=== PATIENT | female | born 1950 | race Caucasian/White ===

== ENCOUNTER → 2019-10-15 12:00 | Outpatient (BNVA) | payer MEDICARE, SELFPAY | PROVIDERS: Family Provider Family Medicine; PCP Family Medicine; Visit Provider Internal Medicine | DX: M06.9 Rheumatoid arthritis, unspecified (principal); Z79.899 Other long term (current) drug therapy; Z11.59 Encounter for screening for other viral diseases; Z11.1 Encounter for screening for respiratory tuberculosis; K21.9 Gastro-esophageal reflux disease without esophagitis; F41.9 Anxiety disorder, unspecified; F32.9 Major depressive disorder, single episode, unspecified; Z90.710 Acquired absence of both cervix and uterus; Z98.890 Other specified postprocedural states | CPT/HCPCS: 36415; 80053; 85025; 85651; 86140; 86480; 86704; 86803; 87340; 99213 ==

== ENCOUNTER 2020-01-05 11:27 | Outpatient (CLI) | payer MEDICARE, SELFPAY ==
--- NOTE | 2020-01-05 11:37 | MM_ITS ---
WS: [id number] SCREENING DIGITAL MAMMOGRAM WITH CAD HISTORY: SCREENING COMPARISON: 12/03/2018 and 11/14/2017 Bilateral CC and MLO views submitted. Computer aided detection analyzed. Breast composition: There are scattered areas of fibroglandular density. Fibroglandular asymmetry on the LEFT cc and the posterior breast is similar to prior studies dating back to 2016. On the LEFT MLO projection is a 6 mm asymmetry in the middle breast which needs further evaluation. RIGHT breast is negative. MM/[place] [id number] IMPRESSION: BI-RADS: 0-Incomplete: Need additional imaging evaluation FOLLOW UP: Additional imaging LEFT breast: Spot compression views (MLO). True ML. Ultrasound to follow if abn ormality persists.
== END 2020-01-05 11:28 | disposition home or self-care (01) ==
LOC: RADSHAW 11:33
PROVIDERS: PCP Family Medicine; Visit Provider Nurse Practitioner Family
DX: Z12.31 Encounter for screening mammogram for malignant neoplasm of breast (principal); N64.89 Other specified disorders of breast
CPT/HCPCS: 77067

== ENCOUNTER 2020-01-19 07:42 | Outpatient (CLI) | payer MEDICARE, SELFPAY ==
--- NOTE | 2020-01-19 08:00 | MM_ITS ---
WS: [id number] ADDITIONAL VIEWS LEFT MAMMOGRAM HISTORY: abnormal mammo COMPARISON: 01/05/2020, 12/03/2018, 10/04/2014 Spot compression views LEFT breast in MLO projections and true ML submitted. Asymmetry recently described is very similar to the prior study from 2015 after additional views. No distortion. MM/[place] [id number] IMPRESSION: BI-RADS: 2-Benign FOLLOW UP: 1 Year Follow-up
== END 2020-01-19 07:43 | disposition home or self-care (01) ==
LOC: RADSHAW 07:45
PROVIDERS: PCP Family Medicine; Visit Provider Nurse Practitioner Family
DX: R92.8 Other abnormal and inconclusive findings on diagnostic imaging of breast (principal)
CPT/HCPCS: 77065

== ENCOUNTER → 2020-02-29 09:51 | Outpatient (BNVA) | payer MEDICARE, SELFPAY | PROVIDERS: PCP Family Medicine; Visit Provider Internal Medicine | DX: M06.9 Rheumatoid arthritis, unspecified (principal); Z79.899 Other long term (current) drug therapy | CPT/HCPCS: 36415; 73120; 80053; 85025; 85651; 86140; 99213 ==

== ENCOUNTER 2020-02-29 10:52 | Outpatient (CLI) | payer MEDICARE, SELFPAY ==
--- NOTE | 2020-02-29 11:21 | XRR_ITS ---
PROCEDURE INFORMATION: Exam: XR Left Hand Exam date and time: 02/29/2020 11:37 AM Age: 69 years old Clinical indication: Condition or disease; Arthritis; Rheumatoid; Hand; Bilateral; Additional info: M06.9 - rheumatoid arthritis, unspecified TECHNIQUE: Imaging protocol: XR Left hand. Views: 3 or more views. COMPARISON: No relevant prior studies available. FINDINGS: Bones/joints: no acute bone abnormality,or bone erosions.Mild osteoarthritis. Soft tissues: Normal. XR/XR hand LT 2V [id number] IMPRESSION: No acute findings.
--- NOTE | 2020-02-29 11:21 | XRR_ITS ---
PROCEDURE INFORMATION: Exam: XR Right Hand Exam date and time: 02/29/2020 11:38 AM Age: 69 years old Clinical indication: Condition or disease; Arthritis; Rheumatoid; Hand; Bilateral; Additional info: M06.9 - rheumatoid arthritis, unspecified TECHNIQUE: Imaging protocol: XR Right hand. Views: 1 or 2 views. COMPARISON: No relevant prior studies available. FINDINGS: Bones/joints: Normal. Soft tissues: Normal. XR/XR hand RT 2V [id number] IMPRESSION: No acute findings.
[2020-02-29 11:49] LABS: Basophils # 0.1 10^3/uL (0.0-0.1); Basophils % 0.9 %; Eosinophils # 0.5 10^3/uL (0.0-0.8); Eosinophils % 4.2 %; Hematocrit 44.7 % (37.0-47.0); Hemoglobin 14.2 g/dL (11.5-15.3); Lymphocytes # 2.6 10^3/uL (0.8-4.8); Lymphocytes % 21.8 %; Mean Corpuscular HGB Conc 31.8 g/dL (30.0-36.0); Mean Corpuscular Hemoglobin 30.5 pg (28.0-34.0); Mean Corpuscular Volume 95.9 fL (81-99); Mean Platelet Volume 9.4 fL (7.4-10.4); Monocytes # 1.1 10^3/uL (0.2-0.9); Monocytes % 9.1 %; Neutrophils # 7.52 10^3/uL (1.8-7.7); Neutrophils % 63.7 %; Nucleated Red Blood Cells % 0 %; Platelet Count 321 10^3/cmm (130-400); Red Blood Count 4.66 10^6/uL (4.1-5.3); Red Cell Distribution Width 14.4 % (12.1-15.1); White Blood Count 11.8 10^3/uL (4.0-10.0)
[2020-02-29 12:19] LABS: Alanine Aminotransferase 23 U/L (0-33); Albumin Level 4.3 g/dL (3.5-5.2); Alkaline Phosphatase 89 IU/L (35-105); Aspartate Amino Transferase 20 U/L (0-32); Blood Urea Nitrogen 18 mg/dL (8-23); Calcium 9.9 mg/dL (8.5-10.5); Carbon Dioxide 31 mmol/L (22-29); Chloride 102 mmol/L (98-107); Globulin 2.8 g/dL (1.3-4.6); Glucose 85 mg/dL (65-115); Osmolality Calculated 289 mOsm/kg (285-295); Sodium 139 mmol/L (136-145); Total Bilirubin 0.3 mg/dL (0.15-1.2); Total Protein 7.1 g/dL (6.6-8.7)
[2020-02-29 12:23] LABS: Anion Gap 10.1 (5-19); Potassium 4.1 mmol/L (3.5-5.1)
[2020-02-29 12:37] LABS: Erythrocyte Sedimentation Rate 18 mm/hr (0-15)
== END 2020-02-29 10:53 | disposition home or self-care (01) ==
PROVIDERS: PCP Family Medicine; Visit Provider Internal Medicine
DX: M06.9 Rheumatoid arthritis, unspecified (principal)
CPT/HCPCS: 36415; 73120; 80053; 85025; 85651; 86140

== ENCOUNTER → 2020-06-01 13:40 | Outpatient (BNVA) | payer MEDICARE, SELFPAY | PROVIDERS: PCP Family Medicine; Visit Provider Internal Medicine | DX: M06.9 Rheumatoid arthritis, unspecified (principal); Z79.899 Other long term (current) drug therapy | CPT/HCPCS: 99214 ==

== ENCOUNTER 2020-06-01 15:18 | Outpatient (CLI) | payer MEDICARE, SELFPAY ==
--- NOTE | 2020-06-01 15:29 | XR_ITS ---
WS: [id number] Sacroiliac joints, 3 views, 06/01/2020 Clinical Data: L40.9 - Psoriasis, unspecified Comparison: None. Findings: The SI joints are normal in width. No erosion, sclerosis or destruction is seen. There are no fractur es or dislocations. The adjacent visualized pelvis and hips are unremarkable. XR/XR sacroiliac jts m 3V [id number] Impression: Negative SI joints.
[2020-06-01 16:24] LABS: Basophils # 0.1 10^3/uL (0.0-0.1); Basophils % 1.1 %; Eosinophils # 0.2 10^3/uL (0.0-0.8); Hematocrit 44.1 % (37.0-47.0); Hemoglobin 13.9 g/dL (11.5-15.3); Lymphocytes # 2.2 10^3/uL (0.8-4.8); Lymphocytes % 24.2 %; Mean Corpuscular HGB Conc 31.5 g/dL (30.0-36.0); Mean Corpuscular Volume 95.2 fL (81-99); Monocytes # 0.7 10^3/uL (0.2-0.9); Monocytes % 7.3 %; Neutrophils % 65.2 %; Nucleated Red Blood Cells % 0 %; Platelet Count 308 10^3/cmm (130-400); Red Blood Count 4.63 10^6/uL (4.1-5.3); Red Cell Distribution Width 13.8 % (12.1-15.1); White Blood Count 8.9 10^3/uL (4.0-10.0)
[2020-06-01 16:40] LABS: Alanine Aminotransferase 18 U/L (0-33); Albumin Level 4.3 g/dL (3.5-5.2); Alkaline Phosphatase 94 IU/L (35-105); Anion Gap 13.5 (5-19); Aspartate Amino Transferase 19 U/L (0-32); Blood Urea Nitrogen 16 mg/dL (8-23); Calcium 9.4 mg/dL (8.5-10.5); Carbon Dioxide 28 mmol/L (22-29); Chloride 103 mmol/L (98-107); Globulin 2.5 g/dL (1.3-4.6); Glucose 129 mg/dL (65-115); Osmolality Calculated 293 mOsm/kg (285-295); Potassium 4.5 mmol/L (3.5-5.1); Sodium 140 mmol/L (136-145); Total Bilirubin 0.3 mg/dL (0.15-1.2); Total Protein 6.8 g/dL (6.6-8.7)
== END 2020-06-01 15:19 | disposition home or self-care (01) ==
PROVIDERS: PCP Family Medicine; Visit Provider Internal Medicine
DX: L40.9 Psoriasis, unspecified (principal); Z79.899 Other long term (current) drug therapy
CPT/HCPCS: 36415; 72202; 80053; 85025

== ENCOUNTER → 2020-08-18 09:15 | Outpatient (BNVA) | payer MEDICARE, SELFPAY | PROVIDERS: PCP Family Medicine; Visit Provider Internal Medicine | DX: M06.9 Rheumatoid arthritis, unspecified (principal); Z79.899 Other long term (current) drug therapy; R70.0 Elevated erythrocyte sedimentation rate; M79.89 Other specified soft tissue disorders | CPT/HCPCS: 99213; 99214 ==

== ENCOUNTER → 2020-11-15 09:34 | Outpatient (BNVA) | payer MEDICARE, SELFPAY | PROVIDERS: PCP Family Medicine; Visit Provider Internal Medicine | DX: M06.9 Rheumatoid arthritis, unspecified (principal); R21 Rash and other nonspecific skin eruption; Z79.899 Other long term (current) drug therapy; Z71.85 Encounter for immunization safety counseling | CPT/HCPCS: 99214 ==

== ENCOUNTER → 2021-02-20 10:19 | Outpatient (BNVA) | payer MEDICARE, SELFPAY | PROVIDERS: PCP Family Medicine; Visit Provider Internal Medicine | DX: M06.9 Rheumatoid arthritis, unspecified (principal); Z79.899 Other long term (current) drug therapy; R70.0 Elevated erythrocyte sedimentation rate | CPT/HCPCS: 99214 ==

== ENCOUNTER 2021-05-06 15:58 | Inpatient (IN) | payer MEDICARE, SELFPAY ==
[2021-05-06 16:19] VITALS: BP 95/69; PULSE 89; RESP 20; TEMP 36.9; O2SAT 97
--- NOTE | 2021-05-06 16:33 | ECG_ITS ---
[facility] Test Date: 2021-05-06 Pat Name: Ligia Patel Department: Room: Gender: Female Clinical Statistics Manager: : [id number] Requested By: Marcello Fuller Order Number: [id number] Kam MD: Pankaj Tafoya M.D. Measurements Intervals [place] Rate: 92 P: 35 AL: 158 QRS: 263 QRSD: 118 T: 47 QT: 359 QTc: 444 Interpretive Statements SINUS RHYTHM POSSIBLE LEFT ATRIAL ENLARGEMENT [-0.1mV P-WAVE IN V1/V2] INDETERMINATE AXIS PATTERN CONSISTENT WITH PULMONARY DISEASE INCOMPLETE RIGHT BUNDLE BRANCH BLOCK [90+ ms QRS DURATION, TERMINAL R IN V1/V2, 40+ ms S IN I/aVL/V4/V5/V6] MODERATE ST DEPRESSION [0.05+ mV ST DEPRESSION] No previous ECG available for comparison Electronically Signed On 05-08-2021 9:02:11 CDT by Pankaj Tafoya M.D. [id number]
--- NOTE | 2021-05-06 16:33 | XRR_ITS ---
PROCEDURE INFORMATION: Exam: XR Chest Exam date and time: 05/06/2021 4:50 PM Age: 70 years old Clinical indication: Chest wall pain; Additional info: Chest pain TECHNIQUE: Imaging protocol: XR of the chest. Views: 1 view. COMPARISON: [place] [id number] 01/19/2020 8:17 AM FINDINGS: Lungs: Unremarkable. No consolidation. Pleural spaces: Unremarkable. No pleural effusion. No pneumothorax. Heart/Mediastinum: Unremarkable. No cardiomegaly. Bones/joints: Unremarkable. XR/XR chest 1V portable [id number] IMPRESSION: No acute findings.
[2021-05-06] MEDS: aspirin 81 mg Chew Tablet 324 MG PO (16:45)
--- NOTE | 2021-05-06 16:47 | ED_ITS ---
HPI - Chest Pain General: Chief Complaint: Nausea/Vomiting/Diarrhea Stated Complaint: SOB, weak, back pain Time Seen by Provider: 05/06/21 16:32 Source: patient Mode of arrival: ambulatory Limitations: no limitations History of Present Illness: 71-year-old male presents emergency room with complaints of chest pain. Has been having intermittent chest pain he had a stress test done recently at [facility] is having recurrent persistent chest pain the stress test showed a reversible defect in the posterior lateral wall he was advised that if he had persistent symptoms to return to the emergency room he is having those now and presents here. He has some radiation of pain to the neck and arm. MD complaint: chest pain Pertinent past history: coronary artery disease Onset (ago): hour(s) Timing of current episode: episodic Prior episodes: Yes Onset: during rest Pain location: left chest Pain radiation: left arm and neck Quality: aching and heaviness Relieving factors: nitroglycerin Exacerbating factors: nothing Context: other (Recent positive Lexiscan sestamibi stress test) Associated symptoms: Reports palpitations; Deny abdominal pain, diaphoresis, dyspnea, fever(s), leg edema, nausea, sense of impending doom, syncope or vomiting Treatment prior to arrival: nitroglycerin Review of Systems Const: Denies: fever(s) or diaphoresis ENMT: Denies: throat pain, ear or mastoid pain, nasal discharge or nasal congestion Card: Reports: chest pain and palpitations; Denies: irregular heart rhythm, edema, swelling of feet/ankles or syncope Resp: Denies: dyspnea GI: Denies: abdominal pain, nausea or vomiting : Denies: flank pain, difficulty voiding, dysuria, urinary frequency or urinary urgency Skin/Breast: Denies: rash or pruritus PFSH ED PFSH: Medical History Benign tumor of brain High risk medication use High risk medication use History of malignant melanoma History of nonmelanoma skin cancer Patient is Spiritism Positive cardiac stress test Rash Rheumatoid arthritis Surgical History S/P lobectomy of brain Social History Smoking and tobacco status: never smoked Alcohol intake: never History of recent travel: No Physical Exam Const: COMMON NORMALS: no acute distress GENERAL APPEARANCE: cooperative and comfortable ORIENTATION/CONSCIOUSNESS: Yes awake, Yes oriented to person, Yes oriented to place and Yes oriented to time HENMT: COMMON NORMALS: normocephalic, atraumatic and hearing grossly normal bilaterally HEAD & SCALP: normocephalic and atraumatic Neck/C-Spine: COMMON NORMALS: no JVD Resp: COMMON NORMALS: normal respiratory effort, No retractions, No use of accessory muscles and clear to auscultation bilaterally AUSCULTATION: clear to auscultation bilaterally Cardio: COMMON NORMALS: no JVD, regular rate, regular rhythm and No murmurs present (Cardio) RATE: regular rate RHYTHM: regular rhythm GI: COMMON NORMALS: Soft to palpation and No hepatosplenomegaly present AUSCULTATION: Yes normoactive bowel sounds PALPATION: Yes Soft to palpation, No Tenderness to palpation present (GI), No Guarding due to palpation present (GI) and Yes No hepatosplenomegaly present Extremity: COMMON NORMALS: normal to inspection, capillary refill normal, no clubbing, cyanosis or edema, no calf tenderness and no pedal edema Neuro: SENSORIUM/ORIENTATION: Yes oriented to person, Yes oriented to place and Yes oriented to time Skin: COMMON NORMALS: no rashes or lesions noted GENERAL SKIN EXAM: no ra shes or lesions noted Course Vital Signs: Vital signs: Vital Signs Temperature 97.7 F 05/07/21 16:10 Pulse Rate 75 05/07/21 16:10 Respiratory Rate 15 05/07/21 16:10 Blood Pressure 99/67 05/07/21 16:10 Pulse Oximetry 92 05/07/21 16:10 MDM - Chest Pain Medical Decision Making No acute ST changes. Patient is having symptoms of responsive to nitro is a positive cardiac stress test. Will admit with hospitalist discussed orders written consult cardiology. anticipation of angiography. Medical Records I reviewed the patient's medical records. Lab Data : 05/07/21 04:53 05/07/21 04:53 Radiology Impressions Chest X-Ray 05/06/21 16:33 IMPRESSION: No acute findings. Laboratory Results WBC 15.7 10^3/uL (4.0-10.0) H 05/06/21 16:58 RBC 4.70 10^6/uL (4.1-5.3) 05/06/21 16:58 Hgb 13.8 g/dL (11.5-15.3) 05/06/21 16:58 Hct 43.0 % (37.0-47.0) 05/06/21 16:58 MCV 91.5 fl (81-99) 05/06/21 16:58 MCH 29.4 pg (28.0-34.0) 05/06/21 16:58 MCHC 32.1 g/dL (30.0-36.0) 05/06/21 16:58 RDW 14.5 % (12.1-15.1) 05/06/21 16:58 Plt Count 377 10^3/cmm (130-400) 05/06/21 16:58 MPV 9.7 fL (7.4-10.4) 05/06/21 16:58 Neut % (Auto) 74.6 % 05/06/21 16:58 Lymph % (Auto) 10.9 % 05/06/21 16:58 [place] % (Auto) 4.4 % 05/06/21 16:58 Eos % (Auto) 9.2 % 05/06/21 16:58 Baso % (Auto) 0.6 % 05/06/21 16:58 Neut # (Auto) 11.73 10^3/uL (1.8-7.7) H 05/06/21 16:58 Lymph # (Auto) 1.7 10^3/uL (0.8-4.8) 05/06/21 16:58 [place] # (Auto) 0.7 10^3/uL (0.2-0.9) 05/06/21 16:58 Eos # (Auto) 1.5 10^3/uL (0.0-0.8) H 05/06/21 16:58 Baso # (Auto) 0.1 10^3/uL (0.0-0.1) 05/06/21 16:58 Nucleated RBC % (auto) 0 % 05/06/21 16:58 Nucleated RBCs # 0.0 /100WBC 05/06/21 16:58 Sodium 139 mmol/L (136-145) 05/06/21 16:58 Potassium 4.1 mmol/L (3.5-5.1) 05/06/21 16:58 Chloride 100 mmol/L (98-107) 05/06/21 16:58 Carbon Dioxide 29 mmol/L (22-29) 05/06/21 16:58 Anion Gap 14.1 (5-19) 05/06/21 16:58 BUN 22 mg/dL (8-23) 05/06/21 16:58 Creatinine 1.0 mg/dL (0.5-0.9) H 05/06/21 16:58 GFR Calculation Not Reportable 05/06/21 16:58 Glucose 113 mg/dL (65-115) 05/06/21 16:58 Calculated Osmolality 292 mOsm/kg (285-295) 05/06/21 16:58 Calcium 10.0 mg/dL (8.5-10.5) 05/06/21 16:58 Iron 36 ug/dL (37-145) L 05/06/21 16:58 TIBC 310 mcg/dl 05/06/21 16:58 % Saturation 11.6 % (20-50) L 05/06/21 16:58 Unsat Iron Binding 274 ug/dL (112-347) 05/06/21 16:58 Total Bilirubin 0.3 mg/dL (0.15-1.2) 05/06/21 16:58 AST 14 U/L (0-32) 05/06/21 16:58 ALT 13 U/L (0-33) 05/06/21 16:58 Alkaline Phosphatase 89 IU/L (35-105) 05/06/21 16:58 Troponin T Baseline 8 ng/L (0-10) 05/06/21 16:58 Total Protein 7.2 g/dL (6.6-8.7) 05/06/21 16:58 Albumin 3.9 g/dL (3.5-5.2) 05/06/21 16:58 Globulin 3.3 g/dL (1.3-4.6) 05/06/21 16:58 TSH 2.45 uIU/mL (0.27-4.20) 05/06/21 16:58 Discharge Plan Discharge Patient Disposition: Admitted As Inpatient Admit Provider: Henri Glass Clinical Impression: Unstable angina Condition: Stable Discharge Orders: Discharge Order (Routine); Ordered 05/07/21 Ordered By: Henri Glass Discharge Diet: Cardiac Discharge Activity: Resume usual activity and Increase activity as tolerated Coding Level of Care Code ED Reservation Manager for Dave Eli
[2021-05-06 17:11] LABS: Basophils # 0.1 10^3/uL (0.0-0.1); Basophils % 0.6 %; Eosinophils # 1.5 10^3/uL (0.0-0.8); Eosinophils % 9.2 %; Hemoglobin 13.8 g/dL (11.5-15.3); Lymphocytes # 1.7 10^3/uL (0.8-4.8); Lymphocytes % 10.9 %; Mean Corpuscular HGB Conc 32.1 g/dL (30.0-36.0); Mean Corpuscular Hemoglobin 29.4 pg (28.0-34.0); Mean Corpuscular Volume 91.5 fl (81-99); Mean Platelet Volume 9.7 fL (7.4-10.4); Monocytes # 0.7 10^3/uL (0.2-0.9); Monocytes % 4.4 %; Neutrophils # 11.73 10^3/uL (1.8-7.7); Neutrophils % 74.6 %; Nucleated Red Blood Cells % 0 %; Platelet Count 377 10^3/cmm (130-400); Red Cell Distribution Width 14.5 % (12.1-15.1); White Blood Count 15.7 10^3/uL (4.0-10.0)
[2021-05-06 17:44] LABS: Alanine Aminotransferase 13 U/L (0-33); Albumin Level 3.9 g/dL (3.5-5.2); Alkaline Phosphatase 89 IU/L (35-105); Anion Gap 14.1 (5-19); Aspartate Amino Transferase 14 U/L (0-32); Blood Urea Nitrogen 22 mg/dL (8-23); Carbon Dioxide 29 mmol/L (22-29); Chloride 100 mmol/L (98-107); Globulin 3.3 g/dL (1.3-4.6); Glucose 113 mg/dL (65-115); Osmolality Calculated 292 mOsm/kg (285-295); Potassium 4.1 mmol/L (3.5-5.1); Sodium 139 mmol/L (136-145); Total Bilirubin 0.3 mg/dL (0.15-1.2); Total Protein 7.2 g/dL (6.6-8.7)
[2021-05-06 17:46] LABS: Troponin(5th) Baseline 8 ng/L (0-10)
--- NOTE | 2021-05-06 18:06 | P.HP_ITS ---
Providers/Chief Complaint Primary Care Provider: Shivam Roberts MD Chief Complaint: SOB, weak, back pain History of Present Illness Ligia Patel is a 70 year old female Zoroastrianism with past medical history of rheumatoid arthritis on leflunomide who presented to the ER today nausea and chest pressure which happened evp marketing today at rest. As per the patient she has been having occasional episode of tachycardia associated with nausea, chest pressure and dizziness at home for last 1 month for which she has been following up with her primary care provider as an outpatient. As an outpatient she had echocardiogram and stress test done at [facility]. As per the review of chart patient's echocardiogram showed no regional wall motion likely with EF of 60%, stress test showed abnormal myocardial study with technic al limited evaluation with possible defect in posterior lateral and anterior apical the posterior lateral defect is partially reversible. Patient does have an event monitor currently placed which is due to come off in 2 days. As per the patient she has not been reported to have any irregular tachycardia. Has been reported only regular tachycardia whenever she would have an event. Patient is a lifelong non-smoker, has a family history of CAD with stent in father. Hospitalist service was consulted for further evaluation and management. Cardiology was consulted from the ER. Review of Systems General: Reports: 10 or more systems reviewed and unremarkable except in HPI and below Const: Denies: fever(s), chills, body aches, change in appetite, change in weight, malaise, night sweats, diaphoresis, change in sleep pattern, daytime sleepiness or snoring Eyes: Denies: change in vision, blurry vision, photophobia, eye discomfort or eye discharge ENMT: Denies: throat pain, enlarged tonsils, hoarseness, mouth pain, oral so res, dry mouth, tinnitus, nasal congestion or post nasal drip Card: Denies: chest pain, palpitations, irregular heart rhythm, edema, swelling of feet/ankles, lightheadedness, syncope, pre-syncope, dyspnea on exertion, orthopnea, leg pain with exertion or acrocyanosis Resp: Denies: dyspnea, productive cough, non-productive cough, wheezing, stridor, pain on inspiration, change in phlegm color, hemoptysis or chest congestion GI: Denies: abdominal pain, nausea, vomiting, hematemesis, coffee ground emesis, dysphagia, heartburn, diarrhea, constipation, bloating, GI cramping, change in bowel habits, pain on defecation, hematochezia or melena : Denies: flank pain, dysuria, urinary frequency, urinary urgency, urinary hesitancy, nocturia or hematuria Musc: Denies: neck pain, back pain, extremity pain, joint pain, joint swelling, joint redness, joint stiffness or limited range of motion Neuro: Denies: headache(s), numbness in extremities, weakness in extremities, sensory changes, lack of coordination, difficulty walking, frequent falls, dizziness, vertigo, confusion, Slurred speech present, difficulty communicating thoughts or seizure-like activity Psych: Denies: anxiety, depression, mood swings, panic attacks, hopelessness or irritability Endo: Denies: polyuria, polydipsia, tired all the time, cold intolerance, excessive sweating, flushing or heat intolerance Billy/Lymph: Denies: easy bruising or easy bleeding All/Imm: Denies: tongue swelling, facial swelling or acute wheezing Medications/Allergies Home Medications Medication Instructions Recorded Confirmed Last Taken Type famotidine 10 mg tablet 10 mg PO DAILY 10/15/19 02/20/21 Unknown History ketoconazole 2 % topical cream 1 applic TOPICAL BID #30 g 07/20/20 02/20/21 Unknown Rx duloxetine 20 mg capsule,delayed 20 mg PO BID 11/15/20 02/20/21 Unknown History release hydroxyzine HCl 25 mg tablet 25 mg PO TID PRN #30 tab 11/15/20 02/20/21 Unknown Rx leflunomide 20 mg tablet 20 mg PO DAILY #20 tab 12/13/20 02/20/21 Unknown Rx leflunomide 20 mg tablet 20 mg PO DAILY #90 tab 12/13/20 02/20/21 Unknown Rx folic acid 1 mg tablet 2 mg PO DAILY #60 tab 01/16/21 02/20/21 Unknown Rx diclofenac sodium 1 % topical gel 4 g TOPICAL QID #100 g 02/20/21 02/20/21 Unknown Rx (Voltaren Arthritis Pain) prednisone 10 mg tablet 10 mg PO DAILY PRN #60 tab 02/22/21 Unknown Rx Allergies Allergy/AdvReac Type Severity Reaction Status Date / Time Sulfa (Sulfonamide Allergy Mild ALGY-Rash Verified 02/20/21 11:07 Antibiotics) PFSH Acute PFSH: Medical History (Updated 05/06/21 @ 18:30 by Henri Glass MD) Benign tumor of brain History of malignant melanoma History of nonmelanoma skin cancer Patient is Zoroastrianism Rheumatoid arthritis Surgical History (Updated 05/06/21 @ 18:30 by Henri Glass MD) S/P lobectomy of brain Social History Smoking and tobacco status: never smoked Alcohol intake: never History of recent travel: No Vitals/I&O/Wt Last Vital Signs Temp 98.4 F 05/06/21 16:19 Pulse 89 05/06/21 16:19 Resp 20 H 05/06/21 16:19 BP 95/69 05/06/21 16:19 Pulse Ox 97 05/06/21 16:19 Physical Exam Narrative: General: No acute distress, AO x3 HEENT: PERRLA, pupils bilaterally equal and reactive Chest: Normal vesicular breath sounds, no added sounds, equal good air entry bilaterally CVS: S1-S2 regular, no murmurs, no tachycardia, no gallops, no rubs Abdomen: Soft, nontender, no organomegaly, bowel sounds present Neuro: Residual drooping of face on right side, inability to close eyelid on left side from lobectomy of brain in past, no other focal deficit , AO x3, power 5/5 in all limbs Data : 05/06/21 16:58 05/06/21 16:58 A&P Assessment and plan (1) Unstable angina: Status: Acute (2) Positive cardiac stress test: Status: Acute (3) Patient is Zoroastrianism: Status: Acute Plan Unstable angina: Has a stress test recently done at [facility]. Records reviewed.Consistent with reversible defect in the posterior lateral wall. Check A1c, lipid panel. Cardiology consulted from the ER. Start on heparin drip. Aspirin 325 mg stat followed by 81 mg daily, atorvastatin 80 mg daily. Normal saline at 50 cc/h. Morphine 1 mg as needed for chest pain. Metoprolol 12.5 mg twice daily for now. Will uptitrate if blood pressures tolerate. Protonix for PUD prophylaxis. Heparin will suffice for DVT prophylaxis. Cardiac diet, n.p.o. after midnight for possible cardiac catheterization. Attestations Medical Necessity Statement*: Admission for more than 2 midnights for management of unstable angina with positive stress test Time Spent in Patient Care: Greater than 35 minutes Coding Level of Care Code Acute Electronic Induction Hardener for Dave Eli Diagnoses Unstable angina I20.0 Positive cardiac stress test R94.39 Patient is Zoroastrianism Z78.9
[2021-05-06] MEDS: lactated ringers 1,000 ML 999 ML IV ×2 (18:12)
[2021-05-06 19:13] LABS: Iron 36 ug/dL (37-145); Percent Saturation 11.6 % (20-50); Total Iron Binding Capacity 310 mcg/dl; Unsaturated Iron Binding 274 ug/dL (112-347)
[2021-05-06 19:22] LABS: Thyroid Stimulating Hormone 2.45 uIU/mL (0.27-4.20)
[2021-05-06 19:42] LABS: Troponin 5 2HR 8.21 ng/L (0-10)
--- NOTE | 2021-05-06 19:47 | PC.NURSE ---
Patient report given to oncoming RN. Patient in bed, she discussed her concerns with RN and provider regarding heparin, she states she can't receive blood products and is concerned it she starts bleeding there would be an issue. patient alert and oriented. Patient stable at shift change.
[2021-05-06] MEDS: sodium chloride 0.9% 1,000 ML 50 ML IV (20:45)
[2021-05-06 21:09] VITALS: BP 136/74; PULSE 109; RESP 18; O2SAT 95
[2021-05-06 22:00] VITALS: PULSE 109
[2021-05-06] MEDS: ondansetron 2 mg/ML SDV 2 mL 4 MG IVP (22:34)
[2021-05-06] MEDS: heparin 5,000 unit/mL INJ 1 mL IV (22:39)
[2021-05-06] MEDS: heparin drip 25,000 UNIT/500 ML PREMIX 23 UNIT IV (22:45)
[2021-05-06] MEDS: atorvastatin 40 mg Tablet 80 MG PO (22:59)
[2021-05-06] MEDS: metoprolol tartrate 25 mg Tablet 12.5 MG PO (22:59)
[2021-05-06 23:18] VITALS: BP 116/68; PULSE 107; RESP 18; TEMP 36.9; O2SAT 91
[2021-05-06 23:45] VITALS: O2SAT 88
[2021-05-06 23:49] VITALS: BP 113/65; PULSE 105; RESP 19; O2SAT 91
[2021-05-06 23:51] LABS: Troponin 5 6HR 9.59 ng/L (0-10)
[2021-05-07] VITALS (19 sets, daily range): BP systolic 99–126; BP diastolic 60–80; PULSE 66–97; RESP 3–26; TEMP 36.5–37.1; O2SAT 92–100
--- NOTE | 2021-05-07 04:33 | PC.NURSE ---
Heparin drip started per protocol at 2245. Rate and bolus verified with KALYN Sullivan. Per the protocol a baseline PTT is not indicated prior to the start of the Heparin drip. This was verified with pharmacy.
--- NOTE | 2021-05-07 04:35 | PC.NURSE ---
pt rested quietly throughout the night after transfer from the ED. VSS. No complaints of pain. Pt voiding in bedpan. Adequate UOP. Pt NPO since midnight. Hourly rounding done. All needs met.
[2021-05-07 05:22] LABS: Basophils # 0.1 10^3/uL (0.0-0.1); Basophils % 0.8 %; Eosinophils # 0.7 10^3/uL (0.0-0.8); Eosinophils % 5.5 %; Hematocrit 35.4 % (37.0-47.0); Hemoglobin 11.3 g/dL (11.5-15.3); Lymphocytes % 8.4 %; Mean Corpuscular HGB Conc 31.9 g/dL (30.0-36.0); Mean Corpuscular Hemoglobin 28.6 pg (28.0-34.0); Mean Corpuscular Volume 89.6 fl (81-99); Mean Platelet Volume 10.1 fL (7.4-10.4); Monocytes # 0.6 10^3/uL (0.2-0.9); Monocytes % 4.9 %; Neutrophils # 9.54 10^3/uL (1.8-7.7); Nucleated Red Blood Cells % 0 %; Platelet Count 267 10^3/cmm (130-400); Red Blood Count 3.95 10^6/uL (4.1-5.3); Red Cell Distribution Width 14.6 % (12.1-15.1); White Blood Count 11.9 10^3/uL (4.0-10.0)
[2021-05-07 05:42] LABS: Partial Thromboplastin Time 108.5 SECONDS (23.9-36.7)
[2021-05-07 05:45] LABS: Alanine Aminotransferase 11 U/L (0-33); Albumin Level 3.3 g/dL (3.5-5.2); Alkaline Phosphatase 67 IU/L (35-105); Anion Gap 10.8 (5-19); Aspartate Amino Transferase 14 U/L (0-32); Blood Urea Nitrogen 19 mg/dL (8-23); Calcium 8.5 mg/dL (8.5-10.5); Carbon Dioxide 23 mmol/L (22-29); Chloride 107 mmol/L (98-107); Chol HDL Ratio 2.92 mg/dL (0.0-4.40); Cholesterol 178 mg/dL (0-200); Creatinine Clr Calc Pharmacy 63.3292; Glucose 118 mg/dL (65-115); HDL Cholesterol 61 mg/dL (60-100); LDL Cholesterol Calculated 95 mg/dL (50-129); Magnesium 1.7 mg/dL (1.7-2.3); Osmolality Calculated 287 mOsm/kg (285-295); Phosphorus 2.7 mg/dL (2.5-4.5); Potassium 3.8 mmol/L (3.5-5.1); Sodium 137 mmol/L (136-145); Total Bilirubin 0.2 mg/dL (0.15-1.2); Total Protein 5.3 g/dL (6.6-8.7); Triglycerides 110 mg/dL (0-150); VLDL Cholestrol Calculation 22 mg/dL (0-30)
[2021-05-07] MEDS: heparin drip 25,000 UNIT/500 ML PREMIX 18 UNIT IV (05:48)
[2021-05-07 06:12] LABS: Estmated Average Glucose 111; Hemoglobin A1C 5.5 % (4.0-6.0)
--- NOTE | 2021-05-07 06:25 | PC.NURSE ---
pt prepped for lab manager
[2021-05-07] MEDS: ondansetron 2 mg/ML SDV 2 mL 4 MG IVP (08:01)
[2021-05-07] MEDS: folic acid 1 mg Tablet 2 MG PO (09:33)
[2021-05-07] MEDS: duloxetine 20 mg Capsule PO (09:33)
[2021-05-07] MEDS: aspirin 81 mg EC Tablet PO (09:33)
[2021-05-07] MEDS: pantoprazole DR 40 mg Tablet PO (09:33)
[2021-05-07] MEDS: metoprolol tartrate 25 mg Tablet PO (09:41)
--- NOTE | 2021-05-07 09:54 | PM.CONSULT ---
Providers/Reason For Consult Consulting Physician/Specialty*: Henri Glass MD Reason for Consult*: acute chest pain Attending Physician: Henri Glass MD Primary Care Provider: Shivam Roberts MD History of Present Illness History of Present Illness Ligia Patel is a 70 year old female patient presented with acute chest discomfort that started yesterday while at rest. Pain was retrosternal moderate in severity nonradiating, associated with feeling of nausea cold sweating. Pain was waxing and waning. She had similar pain in the past that was present mainly with mild activity, almost every day. She had Event monitor. She is Gnosticism and absolutely refuse blood product. As per the review of chart patient's ECHO showed no regional wall motion likely with EF of 60%, stress test showed abnormal myocardial study with technical limited evaluation with possible defect in posterior lateral and anterior apical the posterior lateral defect is partially reversible.?She was scheduled for LHC in [facility]. As per the patient she has not been reported to have any irregular tachycardia.? Has been reported only regular tachycardia whenever she would have an event. Review of Systems General: Reports: 10 or more systems reviewed and unremarkable except in HPI and below Medications/Allergies Home Medications Medication Instructions Recorded Confirmed Last Taken Type famotidine 10 mg tablet 10 mg PO BID 10/15/19 05/06/21 05/05/21 History ketoconazole 2 % topical cream 1 applic TOPICAL BID #30 g 07/20/20 05/06/21 Unknown Rx hydroxyzine HCl 25 mg tablet 25 mg PO TID PRN #30 tab 11/15/20 05/06/21 Unknown Rx leflunomide 20 mg tablet 20 mg PO DAILY #90 tab 12/13/20 05/06/21 05/05/21 Rx folic acid 1 mg tablet 2 mg PO DAILY #60 tab 01/16/21 05/06/21 05/05/21 Rx diclofenac sodium 1 % topical gel 4 g TOPICAL QID #100 g 02/20/21 05/06/21 Unknown Rx (Voltaren Arthritis Pain) prednisone 10 mg tablet 10 mg PO DAILY PRN #60 tab 02/22/21 05/06/21 Unknown Rx cholecalciferol (vitamin D3) 50 50 mcg PO DAILY 05/06/21 05/06/21 05/05/21 History mcg (2,000 unit) capsule (Vitamin D3) duloxetine 30 mg capsule,delayed 30 mg PO DAILY 05/06/21 05/06/21 Unknown History release erythromycin 5 mg/gram (0.5 %) eye 1 applic OPHTHALMIC (EYE) DAILY PRN 05/06/21 05/06/21 Unknown History ointment (3.5 gram tube) lactobacillus combination no.4 3 3,000 mmu cells PO DAILY 05/06/21 05/06/21 05/05/21 History billion cell capsule (Probiotic) lovastatin 10 mg tablet 10 mg PO DAILY 05/06/21 05/06/21 05/05/21 History metoprolol tartrate 25 mg tablet 12.5 mg PO BID 05/06/21 05/06/21 05/06/21 History multivitamin 1 tab PO DAILY 05/06/21 05/06/21 05/06/21 History Allergies Allergy/AdvReac Type Severity Reaction Status Date / Time Sulfa (Sulfonamide Allergy Mild ALGY-Rash Verified 02/20/21 11:07 Antibiotics) Current Medications Generic Name Dose Route Start Last Admin Trade Name Freq PRN Reason Stop Dose Admin Aspirin 81 mg 05/07/21 09:00 05/07/21 09:33 Aspirin 81 Mg Ec Tablet PO 81 mg DAILY MONSERRAT Administration Atorvastatin Calcium 80 mg 05/06/21 21:00 05/06/21 22:59 Atorvastatin 40 Mg Tablet PO 80 mg BEDTIME MONSERRAT Administration Duloxetine HCl 20 mg 05/07/21 09:00 05/07/21 09:33 Duloxetine 20 Mg Capsule PO 20 mg BID MONSERRAT Administration Folic Acid 2 mg 05/07/21 09:00 05/07/21 09:33 Folic Acid 1 Mg Tablet PO 2 mg DAILY MONSERRAT Administration Heparin Sodium (Porcine) 0 unit 05/06/21 18:14 05/06/21 22:39 Heparin 5,000 Unit/Ml Inj 1 Ml IV 4,100 unit PRN PRN Administration Heparin weight-base protocol Protocol Heparin Sodium/Sodium Chloride 25,000 unit in 500 mls @ 0 mls/hr 05/06/21 18:15 05/07/21 05:48 Heparin Drip IV 11.02 unit/kg/hr .Q0M MONSERRAT 18 mls/hr Administration Protocol Per Protocol Sodium Chloride 1,000 mls @ 50 mls/hr 05/06/21 18:45 05/06/21 20:45 Sodium Chloride 0.9% IV 50 mls/hr .Q20H MONSERRAT Administration Ondansetron HCl 4 mg 05/06/21 22:14 05/07/21 08:01 Ondansetron 2 Mg/Ml Sdv 2 Ml IVP 4 mg Q6H PRN Administration NAUSEA AND VOMITING Pantoprazole Sodium 40 mg 05/07/21 09:00 05/07/21 09:[address] 40 Mg Tablet PO 40 mg DAILY MONSERRAT Administration PFSH Acute PFSH: Medical History (Updated 05/06/21 @ 18:30 by Henri Glass MD) Benign tumor of brain History of malignant melanoma History of nonmelanoma skin cancer Patient is Christian Rheumatoid arthritis Surgical History (Updated 05/06/21 @ 18:30 by Henri Glass MD) S/P lobectomy of brain Social History Smoking and tobacco status: never smoked Alcohol intake: never History of recent travel: No Vitals/I&O/Wt Last Vital Signs Temp 98.7 F 05/07/21 04:00 Pulse 84 05/07/21 08:00 Resp 21 H 05/07/21 08:00 BP 117/64 05/07/21 08:00 Pulse Ox 95 05/07/21 08:00 05/06/21 05/07/21 05/07/21 22:59 06:59 14:59 Intake Total 1000 / 1000 262.15 / 1262.15 Balance 1000 / 1000 262.15 / 1262.15 Weight last 48 hrs Weight 81.284 kg Weight 81.647 kg Physical Exam Narrative: General: No acute distress, able to lie flat HEENT: PERRLA, no conjuctival reddness or discharge, no jaundice Chest: Normal vesicular breath sounds, equal good air entry bilaterally CVS: S1-S2 regular, no murmurs, no tachycardia, no gallops, no rubs Abdomen: Soft, nontender, no organomegaly, bowel sounds present Neuro: Residual drooping of face on right side, no other focal deficit , AO x3, power 5/5 in all limbs Pscyh: A * O *3 and no appropriate affect and response LE: no edema and intact distal pulses Skin no rashes or ulcers Data : 05/07/21 04:53 05/07/21 04:53 EKG 1: I personally reviewed and interpreted this EKG as follows: My Interpretation: NSR and Incomplete RBBB EKG computer-generated impression: Chest X-Ray 05/06/21 16:33 IMPRESSION: No acute findings. A&P Assessment and plan (1) Unstable angina: Status: Acute Plan unstable angina, abnormal stress test recently, Hx of rheumatoid arthritis and Gnosticism. She needs C but absolutely refusing blood products and she understand risk. Her daughter was present and understand risk and agree with her mom decision. Cont on heparin, ASA, Statin. Coding Level of Care Code Acute [place] [place] [facility] for Dave Eli Diagnoses Unstable angina I20.0
--- NOTE | 2021-05-07 10:40 | XACV_ITS ---
Exam Room: 2 Ht: 173 cm Wt: 82 kg BSA: 2.00 m2 Gender: Female : 1950 Exam Priority: Routine Procedure(s): Procedure Description: Diagnostic procedure Procedure Description: Left Heart Catheterization Procedure Description: Left ventriculography Procedure Description: Coronary IVUS Procedure Description: Miscellaneous Procedure Description: ACT Procedure Description: Coronary Angiography Diagnostic Cath Status: Urgent Diagnostic Findings * No disease noted in the Left Main, Left Anterior Descending, Right, or Circumflex coronary arteries. * Coronary angiography shows right dominance. * The left main, left anterior descending left circumflex and right coronary arteries are free of any significant disease. There is slow flow in distal LAD which appears small vessel that wraps around apex. Mid LAD has 30% stenosis and appears jeremy myocardial bridge. * IVUS, guide catheter used CLS 3.5 and crossed with guidewire runthrough wire. IVUS revealed small vessel in distal LAD and bridge in midsegment with no obstructive disease in distal, mid and proximal LAD or left main. Conclusions 1. No disease noted in the Left Main, Left Anterior Descending, Right, or Circumflex coronary arteries. 2. The left main, left anterior descending left circumflex and right coronary arteries are free of any significant disease. There is slow flow in distal LAD which appears small vessel that wraps around apex. Mid LAD has 30% stenosis and appears jeremy myocardial bridge. 3. IVUS, guide catheter used CLS 3.5 and crossed with guidewire runthrough wire. IVUS revealed small vessel in distal LAD and bridge in midsegment with no obstructive disease in distal, mid and proximal LAD or left main. Recommendations * Continue current medical management and risk factor modification. Pressures Phase:Rest AO : 75 / 42 ( 54 ) @ 12:18:00 PM 76 / 42 ( 55 ) @ 12:18:00 PM 89 / 52 ( 70 ) @ 12:33:00 PM LV : 93 / -13 / 5 @ 12:18:00 PM Valves Phase:DefaultPhase AV : 14.0 @ 11:45:44 AM 14.0 @ 11:45:44 AM AV Mean Gradient: 6.0 @ 11:45:44 AM 6.0 @ 11:45:44 AM Clinical Evaluation EBL: 5mL-10mL Procedural Details Pre-Procedure Time Out. Identified patient by full name and date of as verbalized by the patient/guarantor. Does the consent match the physician's order: Yes. Accurate & Complete Informed Consent: Yes. Inpatient/Outpatient History & Physical on Chart: Yes. If H&P is completed, is and addenduem needed: Yes; If yes, is the addendum complete: N/A. Visualize and Verify Site with Patient/Guarantor: N/A. Relevant Radiology Images available: Yes. Pre-op teaching completed and patient verbalized understanding. The risks, benefits, and alternatives of sedation and/or procedure were discussed by physician. The patient agrees to continue. Procedure started. [facility] Clinical Fraility Score: 3: Managing Well. Front Elevator Operator Indications:SOB. Chest Pain Symptom Assessment: Asymptomatic. Cardiovascular Instability: No. Correct patient, site and procedure confirmed by cath team. PERRLA. Strong, equal hand shove up bilaterally. Lungs clear x 5 lobes. IV Site on Arrival: 18 gauge in the right anticubital. IV Fluids: 0.9% NaCl at KVO. 500 mL infused prior to rn cardiac cath. Pre Procedural Pulses: bilateral dorsalis pedis was 2+. Pre Procedural Pulses: bilateral posterior tibial was 2+. Pre Procedural Pulses: bilateral radial was 2+. Oxygen started at 2liters/min via nasal canula. right groin was prepped with chloroprep then draped in the usual sterile fashion. right radial was prepped with chloroprep then draped in the usual sterile fashion. Physician notified. Baseline sample Acquired. HR: 73 BPM. Patient's daughter in the Radiology waiting room. Will update as soon as procedure is completed. Equipment: 6F - Radial. Cardiac Cath Pack. ACIST Manifold Kit Model BT 2000. Heparinized Saline (2 units/mL), 1000 mL bag. Physician arrived. Physician scrubbed in. Immediate Pre-Procedure Time Out. Correct Patient: Yes; Correct Procedure: Yes; Correct Site: Yes; Correct Patient Position: Yes; Correct Supplies: Yes; Dried Flammable Prep: Yes; Blood Products Available: N/A;. Lidocaine 1% infiltrated to the right radial. Arterial access obtained. A 6 english TIG catheter in over wire. Pullback taken: LV 93/-14,5; AO 75/42(54); Mean: 6mmHg, Peak to Peak: 14mmHg, SEP: 14sec/min; HR: 54 BPM; SpO2: 93%. Multiple views taken of left coronary artery. Catheter redirected to the RCA. Multiple views taken of right coronary artery. Catheter removed over the glide wire. 6 english XB 3.5 guide catheter was inserted over the glidewire. ACT drawn. Results 148 seconds. Therapeutic limits - pre-heparin administration 90-150 seconds and monitoring heparin during a vascular procedure >250 seconds. Glidewire out. Runthrough guidewire was advanced through the guide catheter to lesion in the mid LAD. IVUS catheter in over the runthrough wire. IVUS measurements completed. IVUS catheter out. Wire out. Guide catheter out. Dr. Weeks scrubbed out. A TR Band was successful obtaining hemostatsis at the Right Radial artery insertion site. TR band placed. Hemostasis obtained. Post Procedure: Pulses reassessed and unchanged. 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 Complications: none. Estimated blood loss: 5mL-10mL. Responsiveness - Normal response to verbal stimuli; alert and oriented, PERRLA. Airway - Unaffected, no intervention required; spontaneous ventilation. Circulation: W/N/L, pulses unchanged. Nausea/Vomiting: No. Procedure completed. Patient transferred by bed to 1st floor. Vital chart was stopped. Total IV fluids: 275 mL. Medication's Wasted: Lidocaine 1% = 18 mL. Medication's Wasted: Heparin = 3000 units. Medication's Wasted: Nitro = 49.8 mg. Access Site Site: Right Radial artery Sheath Size: 6 Fr Hemostasis Method: TR Band Hemostasis Success: Successful Procedure Medications Start: 11:13 AM Stop: : AM Medication: Versed Amount: 1 mg Route: I.V. Start: 11:13 AM Stop: : AM Medication: Fentanyl Amount: 25 mcg Route: I.V. Start: 11:17 AM Stop: : AM Medication: Nitrogylcerin Amount: 200 mcg Route: I.A. Start: 11:17 AM Stop: 11:17 AM Medication: Heparin Amount: 3000 units Route: I.V. Start: 11:19 AM Stop: : AM Medication: 0.9% Saline Amount: ml Route: I.V. bolus Start: 11:30 AM Stop: 11:30 AM Medication: Heparin Amount: 5000 units Route: I.V. I, the attending physician, have reviewed and verified all procedure medications. Yes, all medications given per verbal order History/Risk Factors Hypertension: No Dyslipidemia: No Peripheral Arterial Disease (PAD): No Myocardial Infarction (GA): No Obesity: No Prior Interventions PCI: No CABG: No Valve Surgery: No Report Signatures Finalized by Renetta Weeks MD on 05/07/2021 11:57 AM
--- NOTE | 2021-05-07 12:47 | PM.DCS ---
Discharge Providers Date of Admission: 05/06/21 18:04 Date of Discharge: May 07, 2021 Attending Provider at Admission: Henri Glass MD Attending Provider at Discharge: Henri Glass MD Consults: Cardiology: Dr. Segal Primary Care Provider: Shivam Roberts MD Diagnoses at Discharge Discharge Diagnosis (1) Unstable angina: Status: Acute Reason for Visit Reason for Visit: SOB, weak, back pain Hospital Course Hospital Course Ligia Patel is a 70 year old female patient presented with acute chest discomfort that started yesterday while at rest.? Pain was retrosternal moderate in severity nonradiating, associated with feeling of nausea cold sweating.? Pain was waxing and waning.? She had similar pain in the past that was present mainly with mild activity, almost every day. She had Event monitor. She is Roman Catholic and absolutely refuse blood product. As per the review of chart patient's ECHO showed no regional wall motion likely with EF of 60%, stress test showed abnormal myocardial study with technical limited evaluation with possible defect in posterior lateral and anterior apical the posterior lateral defect is partially reversible.?She was scheduled for LHC in [facility]. As per the patient she has not been reported to have any irregular tachycardia.? Has been reported only regular tachycardia whenever she would have an event. Patient admitted to hospital further evaluation and management of possible unstable angina. Cardiology was consulted. Given recent positive stress test she underwent cardiac angiogram on 05/07 which was consistent with nonobstructive CAD. Patient tolerated procedure well. Her hospitalization was unremarkable. Did not have any tachycardia events on telemetry. Remained in sinus rhythm. She has been discharged hemodynamically stable condition with advised to follow-up with a primary care provider within next 1 week for repeat BMP, follow-up on results from event monitor. Metoprolol 25 mg twice daily has been added to her medication list. Patient is advised to have an endoscopy as an outpatient for further evaluation of her symptoms if they continue. Physical Exam Narrative: General: No acute distress, AO x3 HEENT: PERRLA, pupils bilaterally equal and reactive Chest: Normal vesicular breath sounds, no added sounds, equal good air entry bilaterally CVS: S1-S2 regular, no murmurs, no tachycardia, no gallops, no rubs Abdomen: Soft, nontender, no organomegaly, bowel sounds present Neuro: Residual drooping of face on right side, inability to close eyelid on left side from lobectomy of brain in past, no other focal deficit , AO x3, power 5/5 in all limbs Discharge Data Studies Completed and Pending Completed Studies During Hospitalization Category Date Time Status LICENSED THERAPIST request for service Routine Exams 05/07/21 10:40 Completed XR chest 1V portable [id number] Stat Exams 05/06/21 16:33 Completed Pending at discharge Category Date Time Status Complete Blood Count w/Auto AM LABS Lab 05/08/21 04:00 Ordered Comprehensive Metabolic Panel AM LABS Lab 05/08/21 04:00 Ordered Platelet Count Q2D Lab 05/08/21 04:00 Ordered Platelet Count Q2D Lab 05/10/21 04:00 Ordered Radiology Impressions Chest X-Ray 05/06/21 16:33 IMPRESSION: No acute findings. Laboratory Results WBC 11.9 10^3/uL (4.0-10.0) H 05/07/21 04:53 RBC 3.95 10^6/uL (4.1-5.3) L 05/07/21 04:53 Hgb 11.3 g/dL (11.5-15.3) L 05/07/21 04:53 Hct 35.4 % (37.0-47.0) L 05/07/21 04:53 MCV 89.6 fl (81-99) 05/07/21 04:53 MCH 28.6 pg (28.0-34.0) 05/07/21 04:53 MCHC 31.9 g/dL (30.0-36.0) 05/07/21 04:53 RDW 14.6 % (12.1-15.1) 05/07/21 04:53 Plt Count 267 10^3/cmm (130-400) 05/07/21 04:53 MPV 10.1 fL (7.4-10.4) 05/07/21 04:53 Neut % (Auto) 80.0 % 05/07/21 04:53 Lymph % (Auto) 8.4 % 05/07/21 04:53 Taney % (Auto) 4.9 % 05/07/21 04:53 Eos % (Auto) 5.5 % 05/07/21 04:53 Baso % (Auto) 0.8 % 05/07/21 04:53 Neut # (Auto) 9.54 10^3/uL (1.8-7.7) H 05/07/21 04:53 Lymph # (Auto) 1.0 10^3/uL (0.8-4.8) 05/07/21 04:53 Taney # (Auto) 0.6 10^3/uL (0.2-0.9) 05/07/21 04:53 Eos # (Auto) 0.7 10^3/uL (0.0-0.8) 05/07/21 04:53 Baso # (Auto) 0.1 10^3/uL (0.0-0.1) 05/07/21 04:53 Nucleated RBC % (auto) 0 % 05/07/21 04:53 Nucleated RBCs # 0.0 /100WBC 05/07/21 04:53 APTT 108.5 SECONDS (23.9-36.7) H 05/07/21 04:53 Sodium 137 mmol/L (136-145) 05/07/21 04:53 Potassium 3.8 mmol/L (3.5-5.1) 05/07/21 04:53 Chloride 107 mmol/L (98-107) 05/07/21 04:53 Carbon Dioxide 23 mmol/L (22-29) 05/07/21 04:53 Anion Gap 10.8 (5-19) 05/07/21 04:53 BUN 19 mg/dL (8-23) 05/07/21 04:53 Creatinine 0.9 mg/dL (0.5-0.9) 05/07/21 04:53 GFR Calculation Not Reportable 05/07/21 04:53 Glucose 118 mg/dL (65-115) H 05/07/21 04:53 Estimat Average Glucose 111 05/07/21 04:53 Hemoglobin A1c 5.5 % (4.0-6.0) 05/07/21 04:53 Calculated Osmolality 287 mOsm/kg (285-295) 05/07/21 04:53 Calcium 8.5 mg/dL (8.5-10.5) 05/07/21 04:53 Phosphorus 2.7 mg/dL (2.5-4.5) 05/07/21 04:53 Magnesium 1.7 mg/dL (1.7-2.3) 05/07/21 04:53 Iron 36 ug/dL (37-145) L 05/06/21 16:58 TIBC 310 mcg/dl 05/06/21 16:58 % Saturation 11.6 % (20-50) L 05/06/21 16:58 Unsat Iron Binding 274 ug/dL (112-347) 05/06/21 16:58 Total Bilirubin 0.2 mg/dL (0.15-1.2) 05/07/21 04:53 AST 14 U/L (0-32) 05/07/21 04:53 ALT 11 U/L (0-33) 05/07/21 04:53 Alkaline Phosphatase 67 IU/L (35-105) 05/07/21 04:53 Troponin T Baseline 8 ng/L (0-10) 05/06/21 16:58 Troponin T 120 Minute 8.21 ng/L (0-10) 05/06/21 18:12 Delta Troponin T Not Reportable 05/06/21 18:12 Troponin T Hi Sens 6Hr 9.59 ng/L (0-10) 05/06/21 23:20 Troponin T Hi Sens 6Hr Delta Not Reportable 05/06/21 23:20 Total Protein 5.3 g/dL (6.6-8.7) L D 05/07/21 04:53 Albumin 3.3 g/dL (3.5-5.2) L 05/07/21 04:53 Globulin 2.0 g/dL (1.3-4.6) 05/07/21 04:53 Triglycerides 110 mg/dL (0-150) 05/07/21 04:53 Cholesterol 178 mg/dL (0-200) 05/07/21 04:53 LDL Cholesterol, Calc 95 mg/dL (50-129) 05/07/21 04:53 Total VLDL Cholesterol 22 mg/dL (0-30) 05/07/21 04:53 HDL Cholesterol 61 mg/dL (60-100) 05/07/21 04:53 Cholesterol/HDL Ratio 2.92 mg/dL (0.0-4.40) 05/07/21 04:53 TSH 2.45 uIU/mL (0.27-4.20) 05/06/21 16:58 Vitals Last Vital Signs Temp 97.8 F 05/07/21 12:00 Pulse 68 05/07/21 12:00 Resp 13 05/07/21 12:00 BP 104/64 05/07/21 12:00 Pulse Ox 96 05/07/21 12:00 Discharge Plan Discharge Patient Disposition: Home Condition: Stable Prescriptions: New aspirin 81 mg Tablet,Delayed Release (Dr/Ec) 81 mg PO DAILY 30 Days Qty: 30 0RF pantoprazole [Protonix] [address] for susp in packet 40 mg PO DAILY Qty: 30 0RF Continued diclofenac sodium [Voltaren Arthritis Pain] 1 % gel 4 g topical QID Qty: 100 0RF Rx Instructions: apply to single knee, ankle, foot; for foot includes sole/toes/top of foot ketoconazole 2 % cream 1 applic topical BID Qty: 30 1RF Rx Instructions: Apply twice daily to corners of mouth x 3 weeks then prn for flares hydroxyzine HCl 25 mg tablet 25 mg PO TID PRN (Reason: itching) Qty: 30 0RF leflunomide 20 mg tablet 20 mg PO DAILY Qty: 90 1RF folic acid 1 mg tablet 2 mg PO DAILY Qty: 60 3RF prednisone 10 mg tablet 10 mg PO DAILY PRN (Reason: Flares) Qty: 60 1RF Rx Instructions: As needed multivitamin Tablet 1 tab PO DAILY 0RF erythromycin 5 mg/gram (0.5 %) ointment 1 applic ophthalmic (eye) DAILY PRN (Reason: Eye Irritation) 0RF duloxetine 30 mg capsule,delayed release(DR/EC) 30 mg PO DAILY 0RF Vitamin D3 50 mcg (2,000 unit) Capsule 50 mcg PO DAILY 0RF Probiotic 3 billion cell Capsule 3,000 mmu cells PO DAILY 0RF Rx Instructions: administer with a meal Changed metoprolol tartrate 25 mg tablet 25 mg PO BID Qty: 0 0RF lovastatin 10 mg Tablet 20 mg PO DAILY Qty: 0 0RF Discontinued famotidine 10 mg tablet 10 mg PO BID 0RF Discharge Orders: Discharge Order (Routine); Ordered 05/07/21 Ordered By: Henri Glass Referrals: Shivam Roberts MD [Primary Care Provider] - Discharge Diet: Cardiac Discharge Activity: Resume usual activity and Increase activity as tolerated Patient Instructions: Opioid Safety Activity Restrictions/Additional Instructions: Follow-up with your primary care provider within next 1 week. Metoprolol dose has been increased to 25 mg twice daily. Follow-up with your primary care provider for further results of event monitor. If you continue to have symptoms it would be beneficial to have an endoscopy. Famotidine has been changed to Protonix. Discharge Attestations Time Spent in Discharge Care*: greater than 30 min Specific Discharge Activities: educating patient, educating and/or supporting family/caregiver, discussing with pcp/other providers, discussing with field nurse case manager/social workers/dc planners, documenting/other paperwork and evaluating patient/reviewing data Status at Discharge: Cognitive status at discharge: cognitively intact, Behavioral status at discharge: cooperative, Functional status at discharge: independent ambulation, Overall status at discharge: patient is back to baseline Quality Metrics Clinical Quality Measures [ No reported AMI, CVA or VTE this stay] Coding Level of Care Code Acute [facility] DC note Diagnoses Unstable angina I20.0
== END 2021-05-07 16:52 | disposition home or self-care (01) | DRG 287 ==
LOC: ER 16:48 → CSU 19:26
PROVIDERS: Internal Medicine Interventional Cardiology; Admitting Provider Student in an Organized Health Care Education/Training Program; Emergency Provider Family Medicine; PCP Family Medicine; Visit Provider Student in an Organized Health Care Education/Training Program
PROC: B215YZZ Fluoroscopy of Left Heart using Other Contrast (ICD-10-PCS; principal; 2021-05-07 11:00)
DX: I25.110 Atherosclerotic heart disease of native coronary artery with unstable angina pectoris (principal); Q24.5 Malformation of coronary vessels; Z85.820 Personal history of malignant melanoma of skin; M06.9 Rheumatoid arthritis, unspecified; Z79.899 Other long term (current) drug therapy; Z82.49 Family history of ischemic heart disease and other diseases of the circulatory system; Z79.52 Long term (current) use of systemic steroids
CPT/HCPCS: 36415; 71045; 80053; 80061; 83036; 83540; 83550; 83735; 84100; 84443; 84484; 85025; 85347; 85730; 92978; 93005; 93454; 96360; 96361; 99285; C1753; C1769; C1887; C1894; J1644; J2250; J2405; J3010; J3490; J7030; Q9967

== ENCOUNTER → 2021-05-16 11:18 | Outpatient (BNVA) | payer MEDICARE, SELFPAY | PROVIDERS: PCP Family Medicine; Visit Provider Internal Medicine | DX: M06.9 Rheumatoid arthritis, unspecified (principal); Z79.899 Other long term (current) drug therapy | CPT/HCPCS: 99214 ==

== ENCOUNTER 2021-05-24 11:19 | Outpatient (CLI) | payer MEDICARE, SELFPAY ==
--- NOTE | 2021-05-24 11:38 | MM_ITS ---
WS: [id number] BILATERAL 3D TOMOSYNTHESIS DIGITAL SCREENING MAMMOGRAPHY WITH CAD CLINICAL INFORMATION: SCREENING HISTORY: Screening mammogram. No current complaints. COMPARISON: December 26, 2019 TECHNIQUE: Bilateral CC and MLO views. FINDINGS: Scattered fibroglandular densities bilaterally. Stable nodular breast tissue upper outer breasts bila terally. No suspicious focal mass, asymmetry, calcifications, or architectural distortion. No evidenc e of malignancy. MM/[place] [id number] IMPRESSION: BI-RADS: 2-Benign FOLLOW UP: 1 Year Follow-up Recommend return to annual screening mammography.
== END 2021-05-24 11:20 | disposition home or self-care (01) ==
LOC: RADSHAW 11:29
PROVIDERS: PCP Family Medicine; Visit Provider Family Medicine
DX: Z12.31 Encounter for screening mammogram for malignant neoplasm of breast (principal)
CPT/HCPCS: 77063; 77067

== ENCOUNTER 2021-06-01 20:00 | Outpatient (CLI) | payer MEDICARE, SELFPAY | END 2021-06-01 20:01 | disposition home or self-care (01) | LOC: SLEEP 06-02 06:18 | PROVIDERS: PCP Family Medicine; Visit Provider Family Medicine | DX: G47.33 Obstructive sleep apnea (adult) (pediatric) (principal) | CPT/HCPCS: 95810 ==

== ENCOUNTER → 2021-06-07 12:16 | Outpatient (BNVA) | payer MEDICARE, SELFPAY | PROVIDERS: PCP Family Medicine; Visit Provider Internal Medicine | DX: I25.10 Atherosclerotic heart disease of native coronary artery without angina pectoris (principal); M06.9 Rheumatoid arthritis, unspecified; R94.39 Abnormal result of other cardiovascular function study | CPT/HCPCS: 99214 ==

== ENCOUNTER 2021-09-20 20:00 | Outpatient (CLI) | payer MEDICARE, SELFPAY | END 2021-09-20 20:01 | disposition home or self-care (01) | LOC: SLEEP 09-21 06:25 | PROVIDERS: PCP Family Medicine; Visit Provider Family Medicine | DX: G47.33 Obstructive sleep apnea (adult) (pediatric) (principal) | CPT/HCPCS: 95811 ==

== ENCOUNTER → 2021-09-22 10:55 | Outpatient (BNVA) | payer MEDICARE, SELFPAY | PROVIDERS: PCP Family Medicine; Visit Provider Internal Medicine | DX: M06.9 Rheumatoid arthritis, unspecified (principal); Z79.899 Other long term (current) drug therapy | CPT/HCPCS: 99213; 99214 ==

== ENCOUNTER 2021-11-16 13:27 | Outpatient (CLI) | payer MEDICARE, SELFPAY ==
--- NOTE | 2021-11-16 13:32 | XR_ITS ---
WS: [id number] SCREENING DEXA SCAN Z2 CLINICAL INFORMATION: POSTMENOPAUSAL COMPARISON: 2018 FINDINGS: The L1-L4 bone mineral density measures 1.022 g/cm2. This corresponds to a T score score of -1.3 and Z score of -0.1. Left femoral neck bone mineral density measures 0.912 g/cm2. This corresponds to a T score of -0.8 an d Z score of 0.5. Right femoral neck bone mineral density measures 0.892 g/cm2. This corresponds to a T score -0.9of an d Z score of 0.4. Mean femoral neck bone mineral density measures 0.902 g/cm2. This corresponds to a T score of -0.8 an d Z score of 0.5. XR/XR DEXA axial skeleton* [id number] IMPRESSION: Osteopenia lumbar spine. Normal bone mineralization femoral necks. Patient's FRAX calculated 10 year probability for major osteoporotic fracture i s 15.1 % and osteoporotic hip fracture is 3.4%. Bone mineral density lumbar spine has decreased -2.3% since 2018. Bone mineral density femoral necks decreased -3.1% since 2018.
== END 2021-11-16 13:28 | disposition home or self-care (01) ==
LOC: RAD 13:27
PROVIDERS: PCP Family Medicine; Visit Provider Family Medicine
DX: Z78.0 Asymptomatic menopausal state (principal); M85.88 Other specified disorders of bone density and structure, other site
CPT/HCPCS: 77080

== ENCOUNTER → 2021-12-22 10:24 | Outpatient (BNVA) | payer MEDICARE, SELFPAY | PROVIDERS: PCP Family Medicine; Visit Provider Internal Medicine | DX: M06.9 Rheumatoid arthritis, unspecified (principal); Z79.899 Other long term (current) drug therapy | CPT/HCPCS: 99213 ==

== ENCOUNTER → 2022-06-04 12:34 | Outpatient (BNVA) | payer MEDICARE, SELFPAY | PROVIDERS: PCP Family Medicine; Visit Provider Internal Medicine | DX: I25.10 Atherosclerotic heart disease of native coronary artery without angina pectoris (principal); R94.39 Abnormal result of other cardiovascular function study; M06.9 Rheumatoid arthritis, unspecified | CPT/HCPCS: 99214 ==

== ENCOUNTER → 2022-08-06 14:26 | Outpatient (BNVA) | payer MEDICARE, SELFPAY | PROVIDERS: PCP Family Medicine; Visit Provider Dermatology | DX: L57.0 Actinic keratosis (principal); L85.3 Xerosis cutis; L30.4 Erythema intertrigo; L21.8 Other seborrheic dermatitis; L57.8 Other skin changes due to chronic exposure to nonionizing radiation; L82.1 Other seborrheic keratosis; Z85.828 Personal history of other malignant neoplasm of skin; Z80.8 Family history of malignant neoplasm of other organs or systems | CPT/HCPCS: 17000; 17003; 99204 ==

== ENCOUNTER → 2022-08-17 08:55 | Outpatient (BNVA) | payer MEDICARE, SELFPAY | PROVIDERS: PCP Family Medicine; Visit Provider Internal Medicine | DX: M06.9 Rheumatoid arthritis, unspecified (principal) | CPT/HCPCS: 36415; 80053; 85025; 85651; 86140 ==

== ENCOUNTER → 2022-08-17 08:55 | Outpatient (BNVA) | payer MEDICARE, SELFPAY | PROVIDERS: PCP Family Medicine; Visit Provider Podiatrist Foot & Ankle Surgery | DX: M24.572 Contracture, left ankle (principal); M20.12 Hallux valgus (acquired), left foot; G57.92 Unspecified mononeuropathy of left lower limb; M77.42 Metatarsalgia, left foot | CPT/HCPCS: 99204 ==

== ENCOUNTER → 2022-08-17 08:59 | Outpatient (BNVA) | payer MEDICARE, SELFPAY | PROVIDERS: PCP Family Medicine; Visit Provider Podiatrist Foot & Ankle Surgery | DX: M24.572 Contracture, left ankle (principal); M20.12 Hallux valgus (acquired), left foot; M77.42 Metatarsalgia, left foot; G57.92 Unspecified mononeuropathy of left lower limb; M06.9 Rheumatoid arthritis, unspecified; M79.672 Pain in left foot | CPT/HCPCS: 36415; 73630; 80053; 85025; 85651; 86140 ==

== ENCOUNTER → 2022-08-20 15:41 | Outpatient (BNVA) | payer MEDICARE, SELFPAY | PROVIDERS: PCP Family Medicine; Visit Provider Internal Medicine | DX: M06.9 Rheumatoid arthritis, unspecified (principal) | CPT/HCPCS: 73120; 99214 ==

== ENCOUNTER 2022-11-08 11:40 | Outpatient (CLI) | payer MEDICARE, SELFPAY ==
--- NOTE | 2022-11-08 11:44 | MM_ITS ---
WS: [id number] BILATERAL SCREENING DIGITAL TOMOSYNTHESIS MAMMOGRAM WITH CAD HISTORY: SCREENING COMPARISON: 05/24/2021 and 01/19/2020 Bilateral CC and MLO views with tomosynthesis and synthetic mammography submitted. Computer aided det ection analyzed. Breast composition: There are scattered areas of fibroglandular density. No suspicious masses, microc alcifications or architectural distortion. IMPRESSION: MM/[place] [id number] BI-RADS: 1-Negative FOLLOW UP: 1 Year Follow-up
== END 2022-11-08 11:41 | disposition home or self-care (01) ==
PROVIDERS: PCP Family Medicine; Visit Provider Family Medicine
DX: Z12.31 Encounter for screening mammogram for malignant neoplasm of breast (principal)
CPT/HCPCS: 77063; 77067

== ENCOUNTER 2022-11-22 14:46 | Outpatient (CLI) | payer MEDICARE, SELFPAY | END 2022-11-22 14:47 | disposition home or self-care (01) | PROVIDERS: PCP Family Medicine; Visit Provider Internal Medicine | DX: M06.9 Rheumatoid arthritis, unspecified (principal); Z79.899 Other long term (current) drug therapy | CPT/HCPCS: 36415; 80053; 85025; 85651; 86140; 99204; 99214 ==

== ENCOUNTER 2023-02-20 13:24 | Outpatient (CLI) | payer MEDICARE, SELFPAY ==
[2023-02-20 13:38] LABS: Basophils # 0.1 10^3/uL (0.0-0.1); Basophils % 0.9 %; Eosinophils # 0.3 10^3/uL (0.0-0.8); Eosinophils % 3.1 %; Hematocrit 42.8 % (36-47); Lymphocytes # 2.2 10^3/uL (0.8-4.8); Lymphocytes % 24.1 %; Mean Corpuscular HGB Conc 32.7 g/dL (30-55); Mean Corpuscular Hemoglobin 30.8 pg (27-33); Mean Corpuscular Volume 94.1 fl (85-98); Mean Platelet Volume 9.3 fL (7.4-10.4); Monocytes # 0.4 10^3/uL (0.2-0.9); Monocytes % 4.9 %; Neutrophils # 6.04 10^3/uL (1.8-7.7); Neutrophils % 66.7 %; Nucleated Red Blood Cells % 0 %; Platelet Count 322 10^3/cmm (157-399); Red Blood Count 4.55 10^6/uL (3.85-5.65); Red Cell Distribution Width 14.5 % (12.1-15.1); White Blood Count 9.05 10^3/uL (3.29-11.43)
[2023-02-20 14:09] LABS: Alanine Aminotransferase 18 U/L (0-33); Albumin Level 4.1 g/dL (3.5-5.2); Alkaline Phosphatase 95 U/L (35-105); Anion Gap 15.6 (5-19); Aspartate Amino Transferase 23 U/L (0-32); Blood Urea Nitrogen 22 mg/dL (8-23); Calcium 10.3 mg/dL (8.5-10.5); Carbon Dioxide 25 mmol/L (22-29); Chloride 101 mmol/L (98-107); Globulin 2.8 g/dL (1.3-4.6); Glucose 117 mg/dL (65-115); Osmolality Calculated 288 mOsm/kg (285-295); Potassium 4.6 mmol/L (3.5-5.1); Sodium 137 mmol/L (136-145); Total Bilirubin 0.4 mg/dL (0.15-1.2); Total Protein 6.9 g/dL (6.6-8.7)
== END 2023-02-20 13:25 | disposition home or self-care (01) ==
LOC: LAB 13:27
PROVIDERS: PCP Family Medicine; Visit Provider Internal Medicine
DX: M77.42 Metatarsalgia, left foot (principal)
CPT/HCPCS: 36415; 80053; 85025

== ENCOUNTER → 2023-02-28 16:25 | Outpatient (BNVA) | payer MEDICARE, SELFPAY | PROVIDERS: PCP Family Medicine; Visit Provider Internal Medicine | DX: M77.42 Metatarsalgia, left foot (principal); M06.9 Rheumatoid arthritis, unspecified; Z79.899 Other long term (current) drug therapy | CPT/HCPCS: 99214 ==

== ENCOUNTER 2023-07-15 15:11 | Outpatient (CLI) | payer MEDICARE, SELFPAY ==
[2023-07-15 15:50] LABS: Basophils # 0.1 10^3/uL (0.0-0.1); Basophils % 0.8 %; Eosinophils # 0.4 10^3/uL (0.0-0.8); Eosinophils % 4.8 %; Hematocrit 40.4 % (36-47); Lymphocytes # 1.4 10^3/uL (0.8-4.8); Lymphocytes % 16.1 %; Mean Corpuscular HGB Conc 32.2 g/dL (30-55); Mean Corpuscular Hemoglobin 30.7 pg (27-33); Mean Corpuscular Volume 95.5 fl (85-98); Mean Platelet Volume 9.6 fL (7.4-10.4); Monocytes # 0.7 10^3/uL (0.2-0.9); Monocytes % 7.4 %; Neutrophils # 6.23 10^3/uL (1.8-7.7); Neutrophils % 70.6 %; Nucleated Red Blood Cells % 0 %; Platelet Count 401 10^3/cmm (157-399); Red Blood Count 4.23 10^6/uL (3.85-5.65); White Blood Count 8.82 10^3/uL (3.29-11.43)
[2023-07-15 16:00] LABS: Erythrocyte Sedimentation Rate 15 mm/hr (0-15)
[2023-07-15 16:07] LABS: Alanine Aminotransferase 14 U/L (0-33); Albumin Level 3.8 g/dL (3.5-5.2); Alkaline Phosphatase 96 U/L (35-105); Aspartate Amino Transferase 19 U/L (0-32); Globulin 2.9 g/dL (1.3-4.6); Total Bilirubin 0.3 mg/dL (0.15-1.2); Total Protein 6.7 g/dL (6.6-8.7)
== END 2023-07-15 15:12 | disposition home or self-care (01) ==
PROVIDERS: PCP Family Medicine; Visit Provider Internal Medicine Rheumatology
DX: Z79.899 Other long term (current) drug therapy (principal); M06.9 Rheumatoid arthritis, unspecified
CPT/HCPCS: 36415; 80076; 82565; 85025; 85651; 86140

== ENCOUNTER → 2023-08-05 15:24 | Outpatient (BNVA) | payer MEDICARE, SELFPAY | PROVIDERS: PCP Family Medicine; Visit Provider Nurse Practitioner Family | DX: L57.0 Actinic keratosis (principal); B35.3 Tinea pedis; S80.922A Unspecified superficial injury of left lower leg, initial encounter; X58.XXXA Exposure to other specified factors, initial encounter; Z85.828 Personal history of other malignant neoplasm of skin; D18.01 Hemangioma of skin and subcutaneous tissue; L82.1 Other seborrheic keratosis; Z85.820 Personal history of malignant melanoma of skin | CPT/HCPCS: 17000; 99214 ==

== ENCOUNTER → 2023-09-17 11:13 | Outpatient (BNVA) | payer MEDICARE, SELFPAY | PROVIDERS: PCP Family Medicine; Visit Provider Internal Medicine Rheumatology | DX: M05.79 Rheumatoid arthritis with rheumatoid factor of multiple sites without organ or systems involvement (principal); Z79.899 Other long term (current) drug therapy; Z71.85 Encounter for immunization safety counseling; Z11.1 Encounter for screening for respiratory tuberculosis; Z11.59 Encounter for screening for other viral diseases | CPT/HCPCS: 99214 ==

== ENCOUNTER 2023-11-13 14:44 | Outpatient (CLI) | payer MEDICARE, SELFPAY ==
--- NOTE | 2023-11-13 14:45 | MM_ITS ---
WS: [id number] BILATERAL 3D TOMOSYNTHESIS DIGITAL SCREENING MAMMOGRAPHY WITH CAD CLINICAL INFORMATION: SCREENING HISTORY: Screening mammogram. No current complaints. COMPARISON: 2022 TECHNIQUE: Bilateral CC and MLO views. FINDINGS: Scattered fibroglandular densities bilaterally. No suspicious focal mass, asymmetry, calcifications, or architectural distortion. No evidence of malignancy. A few tiny incidental punctate calcifications . MM/MM scr tomosynthesis [id number] IMPRESSION: DENSITY: There are scattered areas of fibroglandular density. BI-RADS: 2 - Benign. FOLLOW UP: 1 Year Follow-up Recommend return to annual screening mammography.
== END 2023-11-13 14:45 | disposition home or self-care (01) ==
LOC: RAD 14:45
PROVIDERS: PCP Family Medicine; Visit Provider Family Medicine
DX: Z12.31 Encounter for screening mammogram for malignant neoplasm of breast (principal)
CPT/HCPCS: 77063; 77067

== ENCOUNTER → 2024-03-10 14:01 | Outpatient (BNVA) | payer MEDICARE, SELFPAY | PROVIDERS: PCP Family Medicine; Visit Provider Internal Medicine Rheumatology | DX: M05.79 Rheumatoid arthritis with rheumatoid factor of multiple sites without organ or systems involvement (principal); Z79.899 Other long term (current) drug therapy; Z71.85 Encounter for immunization safety counseling | CPT/HCPCS: 80076; 82565; 85025; 85651; 86140; 99214 ==

== ENCOUNTER 2024-05-11 14:18 | Outpatient (CLI) | payer MEDICARE, SELFPAY ==
--- NOTE | 2024-05-11 14:25 | XR_ITS ---
WS: [id number] DEXA (DUAL ENERGY X-RAY ABSORPTIOMETRY) Bone mineral density was performed using a [employer] machine. HISTORY: POSTMENOPAUSAL COMPARISON: 02/16/2021 Lumbar spine BMD (L1-L4): 0.956 g/cm2 T score: -1.9 Z score: -0.7 Total hip BMD: Left: 0.863 g/cm2. T score: -1.2 Z score: 0.2 Right: 0.867 g/cm2. T score: -1.1 Z score: 0.2 10 year probability of a major osteoporotic fracture is 17.7%. Compared to the prior study from 02/16/2021. Lumbar spine bone mineral density has decreased by 6.5%. Bilateral hips bone mineral density has decreased by 4.1%. XR/XR DEXA axial skeleton* [id number] IMPRESSION: OSTEOPENIA based upon the WHO classification for females. Significant decrease in bone mineral density within the lumbar spine and hips s francisca the prior study.
== END 2024-05-11 14:19 | disposition home or self-care (01) ==
LOC: RAD 14:20
PROVIDERS: PCP Family Medicine; Visit Provider Family Medicine
DX: Z78.0 Asymptomatic menopausal state (principal); M85.80 Other specified disorders of bone density and structure, unspecified site
CPT/HCPCS: 77080

== ENCOUNTER 2024-06-12 15:34 | Outpatient (CLI) | payer MEDICARE, SELFPAY ==
[2024-06-12 16:08] LABS: Basophils # 0.1 10^3/uL (0.0-0.1); Basophils % 1.4 %; Eosinophils # 0.3 10^3/uL (0.0-0.8); Eosinophils % 4.5 %; Hematocrit 42.2 % (36-47); Lymphocytes # 1.5 10^3/uL (0.8-4.8); Lymphocytes % 19.8 %; Mean Corpuscular HGB Conc 32.2 g/dL (30-55); Mean Corpuscular Hemoglobin 30.4 pg (27-33); Mean Corpuscular Volume 94.2 fl (85-98); Mean Platelet Volume 9.4 fL (7.4-10.4); Monocytes # 0.5 10^3/uL (0.2-0.9); Monocytes % 7.1 %; Neutrophils # 5.12 10^3/uL (1.8-7.7); Neutrophils % 66.9 %; Nucleated Red Blood Cells % 0 %; Platelet Count 396 10^3/cmm (157-399); Red Blood Count 4.48 10^6/uL (3.85-5.65); Red Cell Distribution Width 14.9 % (12.1-15.1); White Blood Count 7.64 10^3/uL (3.29-11.43)
[2024-06-12 16:19] LABS: Erythrocyte Sedimentation Rate 37 mm/hr (0-15)
[2024-06-12 16:36] LABS: Alanine Aminotransferase 16 U/L (0-33); Albumin Level 4.1 g/dL (3.5-5.2); Alkaline Phosphatase 99 U/L (35-105); Aspartate Amino Transferase 20 U/L (0-32); Globulin 2.9 g/dL (1.3-4.6); Total Bilirubin 0.3 mg/dL (0.15-1.2)
== END 2024-06-12 15:35 | disposition home or self-care (01) ==
PROVIDERS: PCP Family Medicine; Visit Provider Internal Medicine Rheumatology
DX: M05.79 Rheumatoid arthritis with rheumatoid factor of multiple sites without organ or systems involvement (principal); Z79.899 Other long term (current) drug therapy
CPT/HCPCS: 36415; 80076; 82565; 85025; 85651; 86140

== ENCOUNTER → 2024-07-30 13:31 | Outpatient (BNVA) | payer MEDICARE, SELFPAY | PROVIDERS: PCP Family Medicine; Visit Provider Nurse Practitioner Family | DX: L82.1 Other seborrheic keratosis (principal); D22.5 Melanocytic nevi of trunk; L57.8 Other skin changes due to chronic exposure to nonionizing radiation; L81.4 Other melanin hyperpigmentation; L84 Corns and callosities; Z85.828 Personal history of other malignant neoplasm of skin; Z08 Encounter for follow-up examination after completed treatment for malignant neoplasm; Z85.820 Personal history of malignant melanoma of skin; L57.0 Actinic keratosis | CPT/HCPCS: 17000; 99213 ==

== ENCOUNTER 2024-08-31 16:00 | Outpatient (CLI) | payer MEDICARE, SELFPAY ==
[2024-08-31 17:27] LABS: Hematocrit 40.6 % (36-47); Hemoglobin 12.70 g/dL (11.27-16.99); Mean Corpuscular HGB Conc 31.3 g/dL (30-55); Mean Corpuscular Hemoglobin 29.5 pg (27-33); Mean Corpuscular Volume 94.4 fl (85-98); Nucleated Red Blood Cells % 0 %; Platelet Count 344 10^3/cmm (157-399); Red Blood Count 4.30 10^6/uL (3.85-5.65); White Blood Count 8.97 10^3/uL (3.29-11.43)
[2024-08-31 18:16] LABS: Alanine Aminotransferase 16 U/L (0-33); Albumin Level 3.8 g/dL (3.5-5.2); Alkaline Phosphatase 113 U/L (35-105); Aspartate Amino Transferase 20 U/L (0-32); Globulin 3.0 g/dL (1.3-4.6); Total Protein 6.8 g/dL (6.6-8.7)
[2024-08-31 23:49] LABS: Hepatitis B Surface Antigen Non-Reactive (Nonreactive)
== END 2024-08-31 16:01 | disposition home or self-care (01) ==
LOC: LAB 16:03
PROVIDERS: PCP Family Medicine; Visit Provider Internal Medicine Rheumatology
DX: Z79.899 Other long term (current) drug therapy (principal)
CPT/HCPCS: 36415; 80076; 82565; 85025; 85651; 86140; 86480; 86704; 86803; 87340

== ENCOUNTER → 2024-09-08 13:21 | Outpatient (BNVA) | payer MEDICARE, SELFPAY | PROVIDERS: PCP Family Medicine; Visit Provider Internal Medicine Rheumatology | DX: Z79.899 Other long term (current) drug therapy (principal); M05.79 Rheumatoid arthritis with rheumatoid factor of multiple sites without organ or systems involvement; Z71.85 Encounter for immunization safety counseling | CPT/HCPCS: 99214 ==

== ENCOUNTER 2024-11-19 14:36 | Outpatient (CLI) | payer MEDICARE, SELFPAY ==
--- NOTE | 2024-11-19 14:43 | MM_ITS ---
WS: [id number] BILATERAL SCREENING DIGITAL TOMOSYNTHESIS MAMMOGRAM WITH CAD HISTORY: SCREENING COMPARISON: 11/13/2023, 11/08/2022 Bilateral CC and MLO views with tomosynthesis and synthetic mammography submitted. Computer aided detection analyzed. Breast composition: There are scattered areas of fibroglandular density. No suspicious masses, microcalcifications or architectural distortion. Asymmetries in the central LEFT breast are stable over multiple prior exams. There are a few benign calcifications within each breast also. MM/MM scr tomosynthesis [id number] IMPRESSION: BI-RADS: 2 - Benign. FOLLOW UP: 1 Year Follow-up
== END 2024-11-19 14:37 | disposition home or self-care (01) ==
LOC: RAD 14:38
PROVIDERS: PCP Family Medicine; Visit Provider Family Medicine
DX: Z12.31 Encounter for screening mammogram for malignant neoplasm of breast (principal); R92.323 Mammographic fibroglandular density, bilateral breasts; R92.1 Mammographic calcification found on diagnostic imaging of breast; R92.8 Other abnormal and inconclusive findings on diagnostic imaging of breast
CPT/HCPCS: 77063; 77067

== ENCOUNTER 2024-12-08 11:09 | Outpatient (CLI) | payer MEDICARE, SELFPAY ==
[2024-12-08 11:29] LABS: Hematocrit 40.5 % (36-47); Hemoglobin 13.00 g/dL (11.27-16.99); Mean Corpuscular HGB Conc 32.1 g/dL (30-55); Mean Corpuscular Hemoglobin 30.0 pg (27-33); Mean Corpuscular Volume 93.3 fl (85-98); Nucleated Red Blood Cells % 0 %; Platelet Count 335 10^3/cmm (157-399); Red Blood Count 4.34 10^6/uL (3.85-5.65); White Blood Count 7.07 10^3/uL (3.29-11.43)
[2024-12-08 11:53] LABS: Alanine Aminotransferase 16 U/L (0-33); Albumin Level 3.9 g/dL (3.5-5.2); Alkaline Phosphatase 102 U/L (35-105); Aspartate Amino Transferase 19 U/L (0-32); Globulin 3.1 g/dL (1.3-4.6); Total Protein 7.0 g/dL (6.6-8.7)
== END 2024-12-08 11:10 | disposition home or self-care (01) ==
LOC: LAB 11:10
PROVIDERS: PCP Family Medicine; Visit Provider Internal Medicine Rheumatology
DX: Z79.899 Other long term (current) drug therapy (principal)
CPT/HCPCS: 36415; 80076; 82306; 82565; 85025; 85651; 86140

== ENCOUNTER → 2025-01-20 13:24 | Outpatient (BNVA) | payer MEDICARE, SELFPAY | PROVIDERS: PCP Family Medicine; Visit Provider Internal Medicine Rheumatology | DX: M05.79 Rheumatoid arthritis with rheumatoid factor of multiple sites without organ or systems involvement (principal); Z79.899 Other long term (current) drug therapy; Z71.85 Encounter for immunization safety counseling | CPT/HCPCS: 36415; 80076; 82565; 85025; 85651; 86140; 99214 ==